=== PATIENT | female | born 1955 | race Caucasian/White ===

== ENCOUNTER 2018-02-16 18:39 | Outpatient (REF) | payer BC, SELFPAY ==
--- NOTE | 2018-02-16 17:15 | PAPFT_PTH ---
PATIENT: SHANE RODAS LOC: [facility] U#:[id number] AGE/SX: 62/F ROOM: RE02/16/[address]: Keyon Pemberton : 1955 BED: DIS: 02/16/2018 SPEC #: [id number] RECD: 02/17/18 13:05 STATUS: ROBERTA RERory #: [id number] TERESE: 02/16/18 17:[address]: Keyon Pemberton DEPT: [facility] Cytology RECD BY: Gala Chauhan Tissues: 1 - CX/ENDOCX FOR PAP SMEARS Procedures: PAP THIN PREP/[facility] Screening HPV DNA PROBE Comments: [id number]
== END 2018-02-16 18:59 ==
LOC: NCHCN 18:39
PROVIDERS: PCP Internal Medicine; Visit Provider Internal Medicine
DX: Z12.4 Encounter for screening for malignant neoplasm of cervix (principal); Z01.419 Encounter for gynecological examination (general) (routine) without abnormal findings; Z11.51 Encounter for screening for human papillomavirus (HPV)
CPT/HCPCS: 88142; 87624

== ENCOUNTER 2018-07-25 18:26 | Outpatient (REF) | payer BC, SELFPAY ==
[2018-07-25 20:02] LABS: COMMENT (LAB VIEW ONLY) 40.64 mg/dL; Microalb ug/mg Crea 15.7 ug/mg Cr
== END 2018-07-25 18:46 ==
LOC: NCHCN 18:26
PROVIDERS: PCP Internal Medicine; Visit Provider Internal Medicine
DX: I10 Essential (primary) hypertension (principal)
CPT/HCPCS: 82043; 82570